=== PATIENT | female | born 1940 | race Caucasian/White ===

== ENCOUNTER 2024-02-02 23:07 | Emergency (ER) | payer OTHER ==
[~2024-02-02] VITALS: Ht 162.6 cm; Wt 7.7 kg
[2024-02-03] MEDS ORDERED: Diphth,Pertuss(Acell),Tet Vac 0.5 ML VIAL IM ONE (01:45)
[2024-02-03 03:36] VITALS: BP 145/62
== END 2024-02-03 03:38 | disposition home or self-care (01) ==
LOC: ER 23:07
DX: S81.812A Laceration without foreign body, left lower leg, initial encounter (principal); W22.8XXA Striking against or struck by other objects, initial encounter; I10 Essential (primary) hypertension; J45.909 Unspecified asthma, uncomplicated
CPT/HCPCS: 12001; 90471; 90715; 99282

== ENCOUNTER 2024-05-15 06:11 | Day surgery (SDC) | payer OTHER ==
[2024-05-15] MEDS ORDERED: Lidocaine HCl 4% Cream 5 GM ONE (12:43)
== END 2024-05-15 23:00 | disposition home or self-care (01) ==
LOC: WOUND 06:11
DX: L97.222 Non-pressure chronic ulcer of left calf with fat layer exposed (principal); I87.2 Venous insufficiency (chronic) (peripheral); I10 Essential (primary) hypertension; J45.909 Unspecified asthma, uncomplicated; Z90.710 Acquired absence of both cervix and uterus; I83.029 Varicose veins of left lower extremity with ulcer of unspecified site; Z86.79 Personal history of other diseases of the circulatory system
CPT/HCPCS: 93971; A6213; A9270; G0463